=== PATIENT | male | born 1990 | race American Indian/Alaskan Native ===

== ENCOUNTER 2017-08-21 23:15 | Emergency (ER) | payer SELFPAY ==
[2017-08-22 01:25] VITALS: BP 123/79
--- NOTE | 2017-08-22 02:42 | XRay Report ---
FINAL REPORT EXAM: XR CALCANEOUS 2+V RT HISTORY: Right heel pain COMPARISON: None available. FINDINGS: Three views the right calcaneus obtained. Boehler's angle is preserved. No focal bony lesion. No acute fracture. IMPRESSION: No focal bony abnormality.
[2017-08-22] MEDS ORDERED: PERCOCET 5/325 ONE (03:09)
[2017-08-22] MEDS ORDERED: PERCOCET 5/325 PO ONE (03:10)
--- NOTE | 2017-08-22 03:59 | Emergency Department Report ---
ED Lower Extremity HPI - General Chief Complaint: Extremity Injury, Lower Stated Complaint: ANKLE PAIN Time Seen by Provider: 08/22/17 02:44 Source: patient Mode of arrival: Ambulatory Limitations: No Limitations - History of Present Illness Initial Comments: 36-year-old -Filipino male was playing basketball and heard a pop behind his right ankle. Now patient has right heel pain. Patient reports that his pain is a 10 out of 10. Patient reports it is very painful to walk. He has no past medical history currently takes no medications on a daily basis and has no known drug allergies. MD Complaint: ankle injury -: This evening (Monday) Injury: Ankle: Right Place: home Severity: severe Severity scale (0 -10): 10 Improves With: rest Worsens With: weight bearing, movement Context: running Associated Symptoms: snap/pop sensation, swelling, able to partially bear weight - Related Data Previous Rx's Medication Instructions Recorded Last Taken Type Acetaminophen with Codeine 1 tab PO Q6HR PRN #20 tab 08/22/17 Unknown Rx [Acetaminophen-Codeine #4 TAB] Ibuprofen [Motrin 800 MG tab] 800 mg PO Q8HR PRN #30 tablet 08/22/17 Unknown Rx Allergies Allergy/AdvReac Type Severity Reaction Status Date / Time No Known Allergies Allergy Unverified 08/22/17 01:55 ED Review of Systems ROS: Stated complaint: ANKLE PAIN Other details as noted in HPI Comment: All other systems reviewed and negative Constitutional: denies: chills, fever Genitourinary: denies: urgency, dysuria Musculoskeletal: joint swelling (right Achilles), arthralgia (right ankle) Skin: denies: rash, lesions Neurological: denies: headache, weakness, paresthesias ED Past Medical Hx - Past Medical History Hx Arthritis: Yes - Surgical History Past Surgical History?: No - Social History Smoking Status: Current Every Day Smoker Substance Use Type: Marijuana - Medications Home Medications: Home Medications Medication Instructions Recorded Confirmed Last Taken Type Acetaminophen with Codeine 1 tab PO Q6HR PRN #20 tab 08/22/17 Unknown Rx [Acetaminophen-Codeine #4 TAB] Ibuprofen [Motrin 800 MG tab] 800 mg PO Q8HR PRN #30 tablet 08/22/17 Unknown Rx ED Physical Exam - General Limitations: No Limitations General appearance: alert, in no apparent distress, other (appears to be in pain ) - Head Head exam: Present: atraumatic, normocephalic - Extremities Exam Extremities exam: Present: other (right foot able to extend toe and dorsiflex but with pain) - Expanded Lower Extremity Exam Right Hip exam: Present: normal inspection, full ROM Upper Leg exam: Present: normal inspection, full ROM Knee exam: Present: normal inspection, full ROM Ankle exam: Present: tenderness (right Achilles), swelling (right Achilles) Neuro vascular tendon exam: Present: no vascular compromise. Absent: foot drop ED Course Vital Signs 08/22/17 01:18 Temperature 98.6 F Pulse Rate 76 Respiratory 18 Rate Blood Pressure 123/79 O2 Sat by Pulse 100 Oximetry ED Lower Extremity MDM - Medical Decision Making Patient has been evaluated by this provider in fast track. X-ray ordered she has no focal bony abnormalities. Examination patient is able to dorsiflex with pain We'll place patient in Vikash bandage crutches and referral to orthopedist. Tylenol No. 4 for pain management. Critical care attestation.: If time is entered above; I have spent that time in minutes in the direct care of this critically ill patient, excluding procedure time. ED Disposition Clinical Impression: Pain in Achilles tendon Disposition: DC-01 TO HOME OR SELFCARE Is pt being admited?: No Does the pt Need Aspirin: No Condition: Stable Additional Instructions: Please use crutches wear Vikash bandage take pain medication as prescribed. Do not operate heavy machinery while taking Tylenol No. 4. Please follow-up with orthopedist in the next 2-3 days. I have listed their information below. Prescriptions: Acetaminophen with Codeine [Acetaminophen-Codeine #4 TAB] 1 tab PO Q6HR PRN #20 tab PRN Reason: Pain Ibuprofen [Motrin 800 MG tab] 800 mg PO Q8HR PRN #30 tablet PRN Reason: Pain Referrals: RUSTY GARCIA MD [Primary Care Provider] - 3-5 Days SAJAN LANDERS MD [Staff Physician] - 3-5 Days Forms: Work/School Release Form(ED)
== END 2017-08-22 04:10 | disposition home or self-care (01) ==
LOC: EDBD → ED 23:15
DX: M25.571 Pain in right ankle and joints of right foot (principal); M19.90 Unspecified osteoarthritis, unspecified site; F17.200 Nicotine dependence, unspecified, uncomplicated; F12.10 Cannabis abuse, uncomplicated
CPT/HCPCS: 99284

== ENCOUNTER 2020-02-24 19:31 | Emergency (ER) | payer SELFPAY ==
[2020-02-24 20:50] VITALS: BP 104/64
--- NOTE | 2020-02-24 22:04 | Emergency Department Report ---
ED Lower Extremity HPI - General Chief Complaint: Extremity Injury, Lower Stated Complaint: POSS BROKEN TOE RT Time Seen by Provider: 02/24/20 21:54 Source: patient Mode of arrival: Ambulatory Limitations: No Limitations - History of Present Illness Initial Comments: Patient is a 29-year-old male who presents emergency room with complaints of a right foot and right fourth toe injury that occurred 2 days ago. He states that he was running up the steps and accidentally misstepped and fell to the ground. He states that he only missed one step. He states he has associated pain and swelling to the foot and toe. He denies ever injuring in the past. He is ambulatory with discomfort. He denies any numbness or weakness. He has a past medical history of juvenile arthritis. No allergies to medications. - Related Data Previous Rx's Medication Instructions Recorded Last Taken Type Acetaminophen with Codeine 1 tab PO Q6HR PRN #20 tab 08/22/17 Unknown Rx [Acetaminophen-Codeine #4 TAB] Ibuprofen [Motrin 800 MG tab] 800 mg PO Q8HR PRN #30 tablet 08/22/17 Unknown Rx Naproxen [EC-Naprosyn] 500 mg PO BID PRN #14 tablet. 02/24/20 Unknown Rx Allergies Allergy/AdvReac Type Severity Reaction Status Date / Time No Known Allergies Allergy Verified 02/24/20 20:46 ED Review of Systems ROS: Stated complaint: POSS BROKEN TOE RT Other details as noted in HPI Comment: All other systems reviewed and negative ED Past Medical Hx - Past Medical History Previous Medical History?: Yes Hx Arthritis: Yes (RA) - Surgical History Past Surgical History?: Yes Additional Surgical History: biopsy left and right knee - Social History Smoking Status: Current Every Day Smoker Substance Use Type: Alcohol - Medications Home Medications: Home Medications Medication Instructions Recorded Confirmed Last Taken Type Acetaminophen with Codeine 1 tab PO Q6HR PRN #20 tab 08/22/17 Unknown Rx [Acetaminophen-Codeine #4 TAB] Ibuprofen [Motrin 800 MG tab] 800 mg PO Q8HR PRN #30 tablet 08/22/17 Unknown Rx Naproxen [EC-Naprosyn] 500 mg PO BID PRN #14 tablet. 02/24/20 Unknown Rx ED Physical Exam - General Limitations: No Limitations General appearance: alert, in no apparent distress - Head Head exam: Present: atraumatic, normocephalic - Eye Eye exam: Present: normal appearance - ENT ENT exam: Present: mucous membranes moist - Respiratory Respiratory exam: Absent: respiratory distress, accessory muscle use - Extremities Exam Extremities exam: Present: other (ttp to the right 4th toe and the right dorsal foot just superior to the right 4th toe, there is edema and ecchymosis, FROM of the right ankle, foot, and toes, no obvious deformity, neurovascularly intact) - Neurological Exam Neurological exam: Present: alert, oriented X3 - Psychiatric Psychiatric exam: Present: normal affect, normal mood - Skin Skin exam: Present: warm, dry, intact ED Course Vital Signs 02/24/20 20:49 Temperature 97.5 F L Pulse Rate 83 Respiratory 16 Rate Blood Pressure 104/64 O2 Sat by Pulse 96 Oximetry ED Lower Extremity MDM - Radiology Data Radiology results: report reviewed Ordering Physician: BALTAZAR SANCHEZ Date of Service: 02/24/20 Procedure(s): XR foot 3+V RT Accession Number(s): [id number] cc: BALTAZAR SANCHEZ Fluoro Time In Minutes: Right foot-4 views INDICATION: Fall 2 days ago with generalized foot and fourth toe pain. COMPARISON: None. IMPRESSION: Mild generalized soft tissue swelling of the forefoot with no acute fracture or malalignment. Mild great toe MTP DJD. Signer Name: Esvin Shah MD Signed: 02/24/2020 10:30 PM Workstation Name: [id number] Transcribed By: SJ Dictated By: Esvin Shah MD Electronically Authenticated By: Esvin Shah MD Signed Date/Time: 02/24/202229 DD/ 28 TD/TT: - Medical Decision Making Patient is a 29-year-old male who presents emergency room with complaints of a right foot and right fourth toe injury that occurred 2 days ago. He states that he was running up the steps and accidentally misstepped and fell to the ground. He states that he only missed one step. He states he has associated pain and swelling to the foot and toe. He denies ever injuring in the past. He is ambulatory with discomfort. He denies any numbness or weakness. He has a past medical history of juvenile arthritis. No allergies to medications. VSS. on e xam: ttp to the right 4th toe and the right dorsal foot just superior to the right 4th toe, there is edema and ecchymosis, FROM of the right ankle, foot, and toes, no obvious deformity, neurovascularly intact. XR right foot: IMPRESSION: Mild generalized soft tissue swelling of the forefoot with no acute fracture or malalignment. Mild great toe MTP DJD. discussed all results with pt and answered questions. pt given post op shoe by tech and remained neurovascularly intact, he states he does not want crutches. given prescription for naproxen. advised pt Please take medication as prescribed as needed. May ice the foot for 15 minutes at a time, rest, elevate the leg. Follow-up with orthopedic doctor. Return to emergency room for any worsening symptoms. - Differential Diagnosis fx, strain, sprain, contusion, dislocation, tendinitis Critical care attestation.: If time is entered above; I have spent that time in minutes in the direct care of this critically ill patient, excluding procedure time. ED Disposition Clinical Impression: Right foot pain, Toe pain, right Disposition: DC- TO HOME OR SELFCARE Is pt being admited?: No Does the pt Need Aspirin: No Condition: Stable Instructions: Foot Contusion, [id number] Additional Instructions: Please take medication as prescribed as needed. May ice the foot for 15 minutes at a time, rest, elevate the leg. Follow-up with orthopedic doctor. Return to emergency room for any worsening symptoms. Prescriptions: Naproxen [EC-Naprosyn] 500 mg PO BID PRN #14 tablet.dr ROMERO Reason: pain Referrals: PRIMARY MD GLADYS [Primary Care Provider] - 2-3 Days SAJAN LANDERS MD [Staff Physician] - 2-3 Days [facility] [Provider Group] - 2-3 Days Time of Disposition: 22:46 Print Language: GUATEMALAN
--- NOTE | 2020-02-24 22:35 | XRay Report ---
Right foot-4 views INDICATION: Fall 2 days ago with generalized foot and fourth toe pain. COMPARISON: None. IMPRESSION: Mild generalized soft tissue swelling of the forefoot with no acute fracture or malalign ment. Mild great toe MTP DJD. Signer Name: Esvin Shah MD Signed: 02/24/2020 10:30 PM Workstation Name: [id number]
== END 2020-02-24 22:00 | disposition home or self-care (01) ==
LOC: ED 19:31
DX: M79.674 Pain in right toe(s) (principal); M79.671 Pain in right foot; M19.90 Unspecified osteoarthritis, unspecified site; F17.200 Nicotine dependence, unspecified, uncomplicated; Z79.899 Other long term (current) drug therapy; Z98.890 Other specified postprocedural states